=== PATIENT | female | born 1995 | race African-American/Black ===

== ENCOUNTER 2018-07-08 21:13 | Emergency (ER) | payer MEDICAID ==
[~2018-07-08] VITALS: Ht 170.2 cm; Wt 111.0 kg
[2018-07-08] MEDS ORDERED: TETANUS, DIPHTHERIA, PERTUSSIS VAC/PF 0.5ML (>7YR OLD) IM ONE (22:30)
[2018-07-08] MEDS ORDERED: BACITRACIN ZINC OINT UDPKT TOP ONE (22:30)
[2018-07-08 23:02] VITALS: BP 140/80
== END 2018-07-08 23:04 | disposition home or self-care (01) ==
LOC: ER 22:18
DX: S91.312A Laceration without foreign body, left foot, initial encounter (principal); F17.200 Nicotine dependence, unspecified, uncomplicated; Z98.890 Other specified postprocedural states; W25.XXXA Contact with sharp glass, initial encounter; Y93.89 Activity, other specified; Y92.89 Other specified places as the place of occurrence of the external cause
CPT/HCPCS: 90471; 90715; 99283

== ENCOUNTER 2018-07-10 11:17 | Emergency (ER) | payer MEDICAID ==
[~2018-07-10] VITALS: Ht 170.2 cm; Wt 110.0 kg
[2018-07-10] MEDS ORDERED: BACITRACIN ZINC OINT UDPKT TOP ONE (12:30)
[2018-07-10 13:13] VITALS: BP 130/89
== END 2018-07-10 13:13 | disposition home or self-care (01) ==
LOC: ER 11:17
DX: Z48.00 Encounter for change or removal of nonsurgical wound dressing (principal); R03.0 Elevated blood-pressure reading, without diagnosis of hypertension
CPT/HCPCS: 99283